=== PATIENT | male | born 1985 | race Caucasian/White ===

== ENCOUNTER 2017-12-15 23:16 | Emergency (ER) | payer OTHER ==
[2017-12-16] MEDS ORDERED: CLINDAMYCIN 900MG/D5W 900 MG/50 ML BAG IV ONE (00:19)
[2017-12-16] MEDS ORDERED: KETOROLAC 30 MG/ML INJ ONE (00:19)
[2017-12-16] MEDS ORDERED: SMZ./TMP. 800/160 MG TABLET ONE (00:19)
[2017-12-16 00:36] LABS: Absolute Lymphocytes (CBC) 2.1 K/uL (0.7-4.9); Absolute Monocytes 0.8 K/uL (0.1-1.3); Absolute Neutrophil 9.3 K/uL (1.8-8.0); Basophils % 0.6 % (0-1.3); Eosinophils % 1.2 % (0-4.4); Hematocrit 42.2 % (39.6-49.0); MCH 30.9 pg (27.0-35.0); MCV 93.5 fL (80-100); MPV 9.4 fL (7.6-11.3); Monocytes % 6.1 % (3.3-12.3); RBC Red Blood Cell Count 4.51 M/uL (4.33-5.43)
[2017-12-16 00:48] LABS: BUN Blood Urea Nitrogen 18 mg/dL (7-18); Bicarbonate 26 mmol/L (21-32); Glucose Level 90 mg/dL (74-106); Potassium 4.1 mmol/L (3.5-5.1); Sodium Level 142 mmol/L (136-145)
--- NOTE | 2017-12-16 01:02 | EDPHYS ---
Physician Documentation [facility] Name: Mamadou Mccormack Age: 32 yrs Sex: Male : 1985 Arrival Date: 12/15/2017 Time: 23:26 Bed 24 Private MD: ED Physician Jaspreet Gale HPI: 12/16 00:17 This 32 yrs old Male presents to ER via Ambulatory with complaints of cp infection of elbow. 00:17 The patient or guardian complains of swelling, tenderness. cp 00:17 The complaints affect the left elbow. Onset: The symptoms/episode began/occurred 1 cp week(s) ago. Treatment prior to arrival includes: no previous treatment. Associated signs and symptoms: Pertinent positives: swelling, warmth, Pertinent negatives: decreased range of motion, fever. Historical: - Allergies: 12/15 23:38 PENICILLINS; sr5 - Home Meds: 23:38 not taking any home meds x 3 months [Active]; sr5 - PMHx: 23:38 Hypertension; Bipolar disorder; Anxiety; PTSD; GERD; sr5 - Immunization history:: Last tetanus immunization: up to date. - Social history:: Smoking status: Patient uses tobacco products, denies chronic smoking, but will smoke occasionally. - Ebola Screening: : Patient negative for fever greater than or equal to 101.5 degrees Fahrenheit, and additional compatible Ebola Virus Disease symptoms. ROS: 12/16 00:25 Constitutional: Negative for body aches, chills, fever, poor PO intake. cp 00:25 Eyes: Negative for injury, pain, redness, and discharge. cp 00:25 ENT: Negative for drainage from ear(s), ear pain, sore throat, difficulty swallowing, difficulty handling secretions. 00:25 Cardiovascular: Negative for chest pain, palpitations. 00:25 Respiratory: Negative for cough, shortness of breath, wheezing. 00:25 Abdomen/GI: Negative for abdominal pain, nausea, vomiting, and diarrhea. 00:25 MS/extremity: Positive for erythema, pain, swelling, tenderness, warmth, of the left elbow, Negative for acute changes, decreased range of motion. 00:25 Neuro: Negative for altered mental status, headache. 00:25 All other systems are negative. Exam: 00:30 Constitutional: The patient appears in no acute distress, alert, awake, non-toxic, well cp developed, well nourished. 00:30 Head/Face: Normocephalic, atraumatic. cp 00:30 Eyes: Periorbital structures: appear normal, Conjunctiva: normal, no exudate, no injection, Sclera: no appreciated abnormality, Lids and lashes: appear normal, bilaterally. 00:30 ENT: External ear(s): are unremarkable, Nose: is normal, Mouth: Lips: moist, Oral mucosa: moist, Posterior pharynx: is normal, airway is patent. 00:30 Neck: ROM/movement: is normal, is supple, without pain, no range of motions limitations, no nuchal rigidity. 00:30 Chest/axilla: Inspection: normal, Palpation: is normal, no crepitus, no tenderness. 00:30 Cardiovascular: Rate: normal, Rhythm: regular. 00:30 Respiratory: the patient does not display signs of respiratory distress, Respirations: normal, no use of accessory muscles, no retractions, labored breathing, is not present, Breath sounds: are clear throughout, no decreased breath sounds, no stridor, no wheezing. 00:30 Abdomen/GI: Exam negative for discomfort, distension, guarding, Inspection: abdomen appears normal. 00:30 Musculoskeletal/extremity: ROM: full active range of motion, in the left elbow, Perfusion: the extremity is normally perfused throughout, Sensation intact. 00:30 Skin: cellulitis, that is moderate, well demarcated, on the left elbow. Vital Signs: 12/15 23:31 BP 152 / 107; Pulse 95; Resp 14; Temp 98.6; Pulse Ox 99% on R/A; Weight 88.45 kg (R); sr5 Height 6 ft. 0 in. (182.88 cm); Pain 10/10; 12/16 01:08 BP 145 / 84; Pulse 96; Pulse Ox 97% on R/A; rv 12/15 23:31 Body Mass Index 26.45 (88.45 kg, 182.88 cm) sr5 MDM: 12/15 23:56 Patient medically screened. cp 12/16 00:30 Differential diagnosis: abscess, cellulitis, septic joint. cp 01:00 Data reviewed: vital signs, nurses notes, lab test result(s), radiologic studies, plain cp films. 01:00 Test interpretation: by ED physician or midlevel provider: plain radiologic studies. cp Counseling: I had a detailed discussion with the patient and/or guardian regarding: the historical points, exam findings, and any diagnostic results supporting the discharge/admit diagnosis, lab results, radiology results, the need for outpatient follow up, a family practitioner, to return to the emergency department if symptoms worsen or persist or if there are any questions or concerns that arise at home. Response to treatment: the patient's symptoms have mildly improved after treatment, and as a result, I will discharge patient. 12/16 00:08 Order name: Wound Culture cp 12/16 00:08 Order name: CBC with Diff; Complete Time: 00:50 cp 12/16 00:50 Interpretation: Normal except: WBC 12.4; FRENCH% 75.1; NEUT A 9.3. cp 12/16 00:08 Order name: BMP; Complete Time: 00:50 cp 12/16 00:08 Order name: Blood Culture Adult (2) cp 12/16 00:18 Order name: XRAY Elbow LEFT 2 view cp 12/16 00:08 Order name: IV; Complete Time: 00:31 cp Administered Medications: 00:10 Drug: Bactrim (160 mg-800 mg (DS) 1 tablet Route: PO; rv 01:07 Follow up: Response: No adverse reaction rv 00:15 Drug: TORadol 30 mg Route: IVP; Site: right antecubital; rv 01:05 Follow up: Response: No adverse reaction rv 00:20 Drug: Clindamycin 900 mg Route: IVPB; Infused Over: 30 mins; Site: right antecubital; rv 01:07 Follow up: Response: No adverse reaction; IV Status: Completed infusion rv Disposition: 02:00 Co-signature as Attending Physician, Jaspreet Gale MD. rn Disposition: 12/16/17 01:01 Discharged to Home. Impression: Cellulitis of left upper limb - Left Elbow. - Condition is Stable. - Discharge Instructions: Cellulitis, Adult. - Prescriptions for Clindamycin HCl 300 mg Oral Capsule - take 1 capsule by ORAL route every 6 hours for 10 days; 40 capsule. Tramadol 50 mg Oral Tablet - take 1 tablet by ORAL route every 8 hours as needed; 12 tablet. Bactrim DS 800- 160 mg Oral Tablet - take 1 tablet by ORAL route every 12 hours for 10 days; 20 tablet. - Medication Reconciliation Form, Thank You Letter, Antibiotic Education, Prescription Opioid Use form. - Follow up: Private Physician; When: 48 Hours; Reason: Wound Recheck. - Problem is new. - Symptoms have improved. Signatures: Dispatcher [employer] EDJaspreet Escalona MD MD rn Buster Alexander PA PA cp Resecker, Sam RN RN sr5 Farrukh Wells RN RN rv Corrections: (The following items were deleted from the chart) 01:08 01:01 12/16/2017 01:01 Discharged to Home. Impression: Cellulitis of left upper limb - rv Left Elbow. Condition is Stable. Forms are Medication Reconciliation Form, Thank You Letter, Antibiotic Education, Prescription Opioid Use. Follow up: Private Physician; When: 48 Hours; Reason: Wound Recheck. Problem is new. Symptoms have improved. cp
--- NOTE | 2017-12-16 01:02 | ER ---
Nurse's Notes [facility] Name: Mamadou Mccormack Age: 32 yrs Sex: Male : 1985 Arrival Date: 12/15/2017 Time: 23:26 Bed 24 Private MD: Diagnosis: Cellulitis of left upper limb-Left Elbow Presentation: 12/15 23:31 Presenting complaint: Patient states: LEFT elbow pain x 1 week, "was swollen with a sr5 white head, so I popped it, but nothing came out". Wound open at this time. Transition of care: patient was not received from another setting of care. Onset of symptoms was December 08, 2017. Risk Assessment: Do you want to hurt yourself or someone else? Patient reports no desire to harm self or others. Initial Sepsis Screen: Does the patient meet any 2 criteria? HR > 90 bpm. Yes Does the patient have a suspected source of infection? No. Patient's initial sepsis screen is negative. Care prior to arrival: None. 23:31 Method Of Arrival: Ambulatory sr5 23:31 Acuity: ZENY 3 sr5 Triage Assessment: 23:31 General: Appears uncomfortable, Behavior is calm, cooperative. Pain: Complains of pain sr5 in left elbow Pain currently is 10 out of 10 on a pain scale. Neuro: No deficits noted. Cardiovascular: No deficits noted. Respiratory: No deficits noted. Derm: Reports swelling, pain to LEFT elbow. Historical: - Allergies: 23:38 PENICILLINS; sr5 - Home Meds: 23:38 not taking any home meds x 3 months [Active]; sr5 - PMHx: 23:38 Hypertension; Bipolar disorder; Anxiety; PTSD; GERD; sr5 - Immunization history:: Last tetanus immunization: up to date. - Social history:: Smoking status: Patient uses tobacco products, denies chronic smoking, but will smoke occasionally. - Ebola Screening: : Patient negative for fever greater than or equal to 101.5 degrees Fahrenheit, and additional compatible Ebola Virus Disease symptoms. Screenin/26 00:00 Abuse screen: Denies threats or abuse. Denies injuries from another. Nutritional rv screening: No deficits noted. 00:00 Tuberculosis screening: No symptoms or risk factors identified. Fall Risk None rv identified. Assessment: 00:00 General: Appears in no apparent distress. comfortable, Behavior is calm, cooperative. rv 00:00 Pain: Complains of pain in left elbow. Neuro: Level of Consciousness is awake, alert, rv obeys commands, Oriented to person, place, time, situation. Cardiovascular: Capillary refill < 3 seconds. Respiratory: Airway is patent. GI: No signs and/or symptoms were reported involving the gastrointestinal system. : No signs and/or symptoms were reported regarding the genitourinary system. EENT: No signs and/or symptoms were reported regarding the EENT system. Derm: Skin is intact. Vital Signs: 12/15 23:31 BP 152 / 107; Pulse 95; Resp 14; Temp 98.6; Pulse Ox 99% on R/A; Weight 88.45 kg (R); sr5 Height 6 ft. 0 in. (182.88 cm); Pain 10/10; 12/16 01:08 BP 145 / 84; Pulse 96; Pulse Ox 97% on R/A; rv 12/15 23:31 Body Mass Index 26.45 (88.45 kg, 182.88 cm) sr5 ED Course: 12/15 23:26 Patient arrived in ED. es 23:31 Arm band placed on. sr5 23:33 Triage completed. sr5 23:56 Buster Alexander PA is PHCP. cp 23:56 Jaspreet Gale MD is Attending Physician. cp 12/16 00:15 Inserted saline lock: 20 gauge in right antecubital area, using aseptic technique. rv 00:34 Patient has correct armband on for positive identification. Bed in low position. Call rv light in reach. Side rails up X 1. Adult w/ patient. Pulse ox on. NIBP on. 00:59 X-ray completed. Portable x-ray completed in exam room. Patient tolerated procedure mh1 well. 00:59 XRAY Elbow LEFT 2 view In Process Unspecified. EDMS 01:07 No provider procedures requiring assistance completed. IV discontinued, bleeding rv controlled, No redness/swelling at site. Pressure dressing applied. Administered Medications: 00:10 Drug: Bactrim (160 mg-800 mg (DS) 1 tablet Route: PO; rv 01:07 Follow up: Response: No adverse reaction rv 00:15 Drug: TORadol 30 mg Route: IVP; Site: right antecubital; rv 01:05 Follow up: Response: No adverse reaction rv 00:20 Drug: Clindamycin 900 mg Route: IVPB; Infused Over: 30 mins; Site: right antecubital; rv 01:07 Follow up: Response: No adverse reaction; IV Status: Completed infusion rv Outcome: 01:01 Discharge ordered by . barbara 01:07 Discharged to home ambulatory. rv 01:07 Condition: good 01:07 Discharge instructions given to patient, Instructed on discharge instructions, follow up and referral plans. medication usage, Prescriptions given X 3. 01:08 Patient left the ED. rv Addendum: 12/20/2017 07:38 Addendum: Culture Results: Positive wound culture. No further action required. Bacteria s s sensitive to prescribed antibiotic. Signatures: Dispatcher [employer] EDNayeli Vázquez Martha 1 Sweetie Ovalle RN RN ss Buster Alexander PA PA cp Resecker, Sam RN RN sr5 Farrukh Wells RN RN rv Corrections: (The following items were deleted from the chart) 07:41 07:38 Addendum: Culture Results: Positive wound culture. ss ss
--- NOTE | 2017-12-16 11:17 | RAD REPORT ---
EXAM DESCRIPTION: RAD - Elbow Left 2 View - 12/16/2017 12:59 am CLINICAL HISTORY: cellulitis COMPARISON: No comparisons FINDINGS: Moderate soft tissue swelling is seen along the olecranon process of the elbow. No underly ing osteomyelitis. No subcutaneous gas seen. No acute fracture or dislocation evident.
== END 2017-12-16 01:08 | disposition home or self-care (01) ==
LOC: ER 23:16
DX: L03.114 Cellulitis of left upper limb (principal); I10 Essential (primary) hypertension; Z88.0 Allergy status to penicillin; Z72.0 Tobacco use
CPT/HCPCS: 36415; 80048; 85025; 87040; 87070; 87077; 87186; 87205; 96365; 96375; 99284

== ENCOUNTER 2018-03-31 16:18 | Emergency (ER) | payer OTHER ==
--- OUTSIDE RECORDS SUMMARY | 2018-03-31 16:21 | XMS REPORT ---
:1985 [facility] Address [address] [place] [address] Care Team Providers Name Role Phone Unavailable Unavailable Unavailable Payers Payer Name Policy Type Policy Number Effective Date Expiration Date Problems This patient has no known problems. Allergies, Adverse Reactions, Alerts Allergy Name Allergy Status Severity Reaction(s) Onset Inactive Treating Comments Type Date Date Clinician Penicillins DA Active ID [id number] 00:00:0 0 Medications This patient has no known medications.
--- OUTSIDE RECORDS SUMMARY | 2018-03-31 16:21 | XMS REPORT | Clinical Summary ---
:1985 Author Organization [facility] Address [address] [place] [address] Care Team Providers Name Role Phone Asked, No Pcp Primary Care Provider Unavailable Allergies Active Allergy Reactions Severity Noted Date Comments Penicillins GI Intolerance Medium 02/22/2018 Medications Medication Sig Dispensed Refills Start Date End Date Status keTOROlac (TORadol) Take 1 tablet 15 tablet 0 02/22/2018 02/27/2018 10 mg tablet (10 mg total) by mouth every 6 (six) hours as needed for moderate pain for up to 5 days. acetaminophen-codeine Take 1-2 20 tablet 0 02/22/2018 02/27/2018 (TYLENOL WITH CODEINE tablets by #3) 300-30 mg per mouth every 6 tablet (six) hours as needed for moderate pain for up to 5 days. ondansetron ODT Take 1 tablet 10 tablet 0 02/22/2018 03/24/2018 (ZOFRAN ODT) 4 MG (4 mg total) by disintegrating tablet mouth every 8 (eight) hours as needed for nausea for up to 30 days. doxycycline Take 1 capsule 20 capsule 0 03/09/2018 03/19/2018 (VIBRAMYCIN) 100 MG (100 mg total) capsule by mouth 2 (two) times a day for 10 days. acetaminophen-codeine Take 1-2 10 tablet 0 03/09/2018 03/12/2018 (TYLENOL WITH CODEINE tablets by #3) 300-30 mg per mouth every 6 tablet (six) hours as needed for moderate pain for up to 3 days. Active Problems Not on file Encounters Date Type Specialty Care Team Description 03/09/2018 Emergency Emergency Medicine Antione Cruz, Right flank pain (Primary MD Dx) 02/22/2018 Emergency Emergency Medicine Randy Lopez, Flank pain ( Primary Dx) MD after 03/30/2017 Social History Tobacco Use Types Packs/Day Years Used Date Current Every Day Smoker Smokeless Tobacco: Current User Alcohol Use Drinks/Week oz/Week Comments Yes Sex Assigned at Date Recorded Not on file Job Start Date Occupation Industry Not on file Not on file Not on file Travel History Travel Start Travel End No recent travel history available. Last Filed Vital Signs Vital Sign Reading Time Taken Blood Pressure 135/85 03/09/2018 9:51 AM MEASUREMENT AND SENSING TECHNICIAN Pulse 74 03/09/2018 9:51 AM MEASUREMENT AND SENSING TECHNICIAN Temperature 37.1 C (98.7 F) 03/09/2018 8:01 AM MEASUREMENT AND SENSING TECHNICIAN Respiratory Rate 15 03/09/2018 9:51 AM MEASUREMENT AND SENSING TECHNICIAN Oxygen Saturation 99% 03/09/2018 9:51 AM MEASUREMENT AND SENSING TECHNICIAN Inhaled Oxygen Concentration - - Weight 89.8 kg (198 lb) 02/22/2018 2:11 PM CDT Height 182.9 cm (6') 03/09/2018 8:04 AM MEASUREMENT AND SENSING TECHNICIAN Body Mass Index 26.85 02/22/2018 2:11 PM CDT Plan of Treatment Health Maintenance Due Date Last Done Comments INFLUENZA VACCINE 11/21/2017 HEPATITIS B VACCINES Aged Out No longer eligible based on patient's age to complete this topic IPV VACCINES Aged Out No longer eligible based on patient's age to complete this topic MENINGOCOCCAL VACCINE Aged Out No longer eligible based on patient's age to complete this topic Procedures Procedure Name Priority Date/Time Associated Comments Diagnosis CT RENAL STONE STAT 03/09/2018 8:43 Results for this PROTOCOL AM MEASUREMENT AND SENSING TECHNICIAN procedure are in the results section. URINALYSIS SCREEN AND STAT 03/09/2018 8:34 Results for this MICROSCOPY, WITH AM MEASUREMENT AND SENSING TECHNICIAN procedure are in REFLEX TO CULTURE the results section. URINE CULTURE STAT 03/09/2018 8:34 Results for this AM MEASUREMENT AND SENSING TECHNICIAN procedure are in the results section. ESTIMATED GFR STAT 03/09/2018 8:32 Results for this AM MEASUREMENT AND SENSING TECHNICIAN procedure are in the results section. COMPREHENSIVE STAT 03/09/2018 8:32 Results for this METABOLIC PANEL AM MEASUREMENT AND SENSING TECHNICIAN procedure are in the results section. HC COMPLETE BLD COUNT STAT 03/09/2018 8:32 Results for this W/AUTO DIFF AM MEASUREMENT AND SENSING TECHNICIAN procedure are in the results section. URINALYSIS SCREEN AND STAT 02/22/2018 3:17 Results for this MICROSCOPY, WITH PM CDT procedure are in REFLEX TO CULTURE the results section. URINE CULTURE STAT 02/22/2018 3:17 Results for this PM CDT procedure are in the results section. CT RENAL STONE STAT 02/22/2018 3:02 Results for this PROTOCOL PM CDT procedure are in the results section. ESTIMATED GFR STAT 02/22/2018 2:39 Results for this PM CDT procedure are in the results section. COMPREHENSIVE STAT 02/22/2018 2:39 Results for this METABOLIC PANEL PM CDT procedure are in the results section. HC COMPLETE BLD COUNT STAT 02/22/2018 2:39 Results for this W/AUTO DIFF PM CDT procedure are in the results section. after 03/30/[address] Renal Stone Protocol (03/09/2018 8:43 AM MEASUREMENT AND SENSING TECHNICIAN)Only the most recent of2 resultswithin the time period is included. Narrative Performed At EXAMINATION:CT RENAL STONE PROTOCOL [facility] CLINICAL HISTORY:Flank painrecurrent stone disease suspected TECHNIQUE: Multiple axial images of the abdomen and pelvis were obtained without intravenous administration of iodinated contrast. Sagittal and coronal computerized reformatted images were also obtained. The lack of intravenous contrast reduces the sensitivity of detecting solid organ disease. CT imaging was performed with iterative reconstruction technique and/or automated exposure control to reduce radiation dose. COMPARISON:February 22, [address] FINDINGS: Lung bases clear. Minimal emphysematous bleb right base. No free peritoneal air or fluid Abdomen: Liver is grossly unremarkable on noncontrast examination. Spleen is normal in size. Gallbladder grossly unremarkable. No gross biliary distention. Adrenal glands normal size. Pancreas unremarkable in gross appearance. Abdominal aorta normal in caliber with scattered atherosclerotic change No abdominal adenopathy evident. Moderate fecal material in the colon. No bowel obstruction the abdomen. Kidneys remain normal in size. There is no hydronephrosis on either side. There are punctate nonobstructing intrarenal calyceal calculi bilaterally similar to previous. Less than 5 mm benign appearing cortical cyst off the inferior pole of the right kidney as on previous. Pelvis: The appendix is normal in caliber in the right mid to lower pelvis. There is moderate fecal material throughout the colon. Mild diverticulosis of the sigmoid. No diverticulitis. No bowel obstruction Bladder grossly unremarkable. Prostate not enlarged. No pelvic mass or sidewall adenopathy. No abdominal wall hernia. Slight degenerative changes lumbar and lower thoracic spine IMPRESSION: Stable bilateral punctate nonobstructing intrarenal calculi No hydronephrosis Normal appendix Otherwise unremarkable noncontrast CT abdomen and pelvis [id number] Procedure Note Hm Interface, Radiology Results Incoming - 03/09/2018 9:15 AM MEASUREMENT AND SENSING TECHNICIAN EXAMINATION: CT RENAL STONE PROTOCOL CLINICAL HISTORY: Flank pain recurrent stone disease suspected TECHNIQUE: Multiple axial images of the abdomen and pelvis were obtained without intravenous administration of iodinated contrast. Sagittal and coronal computerized reformatted images were also obtained. The lack of intravenous contrast reduces the sensitivity of detecting solid organ disease. CT imaging was performed with iterative reconstruction technique and/or automated exposure control to reduce radiation dose. COMPARISON: February 22, [address] FINDINGS: Lung bases clear. Minimal emphysematous bleb right base. No free peritoneal air or fluid Abdomen: Liver is grossly unremarkable on noncontrast examination. Spleen is normal in size. Gallbladder grossly unremarkable. No gross biliary distention. Adrenal glands normal size. Pancreas unremarkable in gross appearance. Abdominal aorta normal in caliber with scattered atherosclerotic change No abdominal adenopathy evident. Moderate fecal material in the colon. No bowel obstruction the abdomen. Kidneys remain normal in size. There is no hydronephrosis on either side. There are punctate nonobstructing intrarenal calyceal calculi bilaterally similar to previous. Less than 5 mm benign appearing cortical cyst off the inferior pole of the right kidney as on previous. Pelvis: The appendix is normal in caliber in the right mid to lower pelvis. There is moderate fecal material throughout the colon. Mild diverticulosis of the sigmoid. No diverticulitis. No bowel obstruction Bladder grossly unremarkable. Prostate not enlarged. No pelvic mass or sidewall adenopathy. No abdominal wall hernia. Slight degenerative changes lumbar and lower thoracic spine IMPRESSION: Stable bilateral punctate nonobstructing intrarenal calculi No hydronephrosis Normal appendix Otherwise unremarkable noncontrast CT abdomen and pelvis [id number] Performing Organization Address City/State/Zipcode Phone Number [facility] [address] [place] [address] Urinalysis screen and microscopy, with reflex to culture (03/09/2018 8:34 AM MEASUREMENT AND SENSING TECHNICIAN)Only the most recent of2 resultswithin the time period is included. Specimen site Clean catch [facility] Color, UA Yellow [facility] Appearance, UA Clear [facility] Specific gravity, UA 1.023 1.001 - 1.035 [facility] pH, UA 5.0 5.0 - 8.5 [facility] Protein, UA Negative Negative [facility] Glucose, UA Negative Negative [facility] Ketones, UA Negative Negative [facility] Bilirubin, UA Negative Negative [facility] Blood, UA Negative Negative [facility] Nitrite, UA Negative Negative [facility] Urobilinogen, UA 2.0 (A) <2.0 [facility] Leukocyte esterase, UA Negative Negative [facility] WBC, UA 0-5 0 - 1 /HPF [facility] RBC, UA None seen 0 - 5 /HPF [facility] Bacteria, UA None seen None seen [facility] Yeast, UA None seen [facility] Yeast with pseudohyphae, UA None seen [facility] Specimen Urine Performing Organization Address [facility] Phone Number [facility] DEPARTMENT OF PATHOLOGY AND [address] [place] [address] Urine culture (03/09/2018 8:34 AM MEASUREMENT AND SENSING TECHNICIAN)Only the most recent of2 resultswithin the time period is included. Urine culture SEE COMMENTComment: Bacteriuria [facility] screen negative. HOSPITAL Specimen Urine Performing Organization Address [facility] Phone Number [facility] PATHOLOGY AND [address] [place] [address] Estimated GFR (03/09/2018 8:32 AM MEASUREMENT AND SENSING TECHNICIAN)Only the most recent of2 resultswithin the time period is included. Estimated GFR >=90 mL/min/1.73 m2 [facility] Comment: [facility] CatergoryUnitsInterpretation G1 >=90 Normal or high G2 60-89Mildly decreased [id number] to moderately decreased [id number] to severely decreased G4 15-29Severely decreased G5 <15Kidney failure The eGFR was calculated using the Chronic Kidney Disease Epidemiology Collaboration (CKD-EPI) equation. Interpretation is based on recommendations of the National Kidney Foundation-Kidney Disease Outcomes Quality Initiative (NKF-KDOQI) published in 2014. Specimen Plasma specimen Performing Organization Address City/[facility] Phone Number [facility] DEPARTMENT OF PATHOLOGY AND [id number] [place] [address] [place], [place] [id number] [place] [address] CBC with platelet and differential (03/09/2018 8:32 AM MEASUREMENT AND SENSING TECHNICIAN)Only the most recent of2 resultswithin the time period is included. WBC 15.24 (H) 4.50 - 11.00 k/uL [facility] RBC 5.01 4.40 - 6.00 m/uL [facility] HGB 15.1 14.0 - 18.0 g/dL [facility] HCT 46.5 41.0 - 51.0 % [facility] MCV 92.8 82.0 - 100.[address] [facility] MCH 30.1 27.0 - 34.[address] [facility] MCHC 32.5 31.0 - 37.0 g/dL [facility] RDW - SD 46.5 37.0 - 55.[address] [facility] MPV 10.8 8.8 - 13.[address] [facility] Platelet count 233 150 - 400 k/uL [facility] Nucleated RBC 0.00 /[address] [facility] Neutrophils 62.8 39.0 - 69.0 % [facility] Lymphocytes 29.3 25.0 - 45.0 % [facility] Monocytes 6.5 0.0 - 10.0 % [facility] Eosinophils 0.7 0.0 - 5.0 % [facility] Basophils 0.5 0.0 - 1.0 % [facility] Specimen Blood Performing Organization Address City/[facility]/Zipcode Phone Number [facility] DEPARTMENT OF PATHOLOGY AND [address] [place] [address] [place] [address] [facility] [address] Comprehensive metabolic panel (03/09/2018 8:32 AM MEASUREMENT AND SENSING TECHNICIAN)Only the most recent of2 resultswithin the time period is included. Sodium 141 135 - 148 mEq/L [facility] Potassium 4.0 3.5 - 5.0 mEq/L [facility] Chloride 101 98 - 112 mEq/L [facility] CO2 26 24 - 31 mEq/L [facility] Anion gap 14@ANIO 7 - 15 mEq/L [facility] BUN 14 6 - 20 mg/dL [facility] Creatinine 0.90 0.70 - 1.20 mg/dL [facility] Glucose 109 (H) 65 - 99 mg/dL [facility] Calcium 10.4 (H) 8.3 - 10.2 mg/dL [facility] Protein 8.4 (H) 6.3 - 8.3 g/dL [facility] Comment: [facility] 4.6-7.0 g/dL 1 week 4.4-7.6 g/dL 7 months-1year5.1-7.3 g/dL 1-2 years5.6-7.5 g/dL >3 years6.0-8.0 g/dL 18-150 6.3-8.3 g/dL Albumin 4.9 3.5 - 5.0 g/dL [facility] A/G ratio 1.4 0.7 - 3.8 [facility] Alkaline phosphatase 65 40 - 129 U/L [facility] AST 17 10 - 50 U/L [facility] ALT 11 5 - 50 U/L [facility] Total bilirubin 0.2 0.0 - 1.2 mg/dL [facility] Specimen Plasma specimen Performing Organization Address City/State/Zipcode Phone Number [facility] DEPARTMENT OF PATHOLOGY AND [address] after 03/30/2017 Advance Directives Patient has advance care planning documents on file. For more information, please contact:Danish Stoner[address] [facility] [place] [address]
[2018-03-31] MEDS ORDERED: KETOROLAC 30 MG/ML INJ ONE (16:44)
[2018-03-31 16:55] LABS: Urine Bacteria <20 /HPF (NONE SEEN)
[2018-03-31 16:56] LABS: Urine Culture Reflex Order NOT NEEDED
--- NOTE | 2018-03-31 17:10 | RAD REPORT ---
EXAM DESCRIPTION: CT - Stone Protocol - 03/31/2018 5:00 pm CLINICAL HISTORY: Back pain, right flank pain, dysuria COMPARISON: None. TECHNIQUE: Axial 5 mm thick images were obtained without oral or IV contrast. The [id number] span s the entirety of the system including uppermost abdomen and lung bases. All CT scans are performed using dose optimization technique as appropriate and may include automated exposure control or mA/KV adjustment according to patient size. FINDINGS: No hydronephrosis is present and no obstructing ureteral calculi. Punctate nonobstructing 1-2 mm sized calyx calculi seen in each kidney. No suspicious renal masses. Isodense masses and pyelo nephritis are not excluded on a stone protocol CT scan. Urinary bladder is mostly contracted limiting assessment. No bladder calculi. Prostate gland and seminal vesicles within normal range. Imaged portions of the liver, spleen and pancreas show no suspicious findings on non-contrast imaging . No gallbladder or biliary tree abnormality identified. No significant adrenal finding. No suspicious bowel findings. No appendicitis findings. A few small mesenteric lymph nodes are presen t. No hernia, mass or bulky lymphadenopathy noted. No free air, free fluid or inflammatory stranding. No significant bony abnormality. IMPRESSION: No hydronephrosis, obstructing calculus or other acute finding. Patient has punctate 1-2 mm bilateral calyx calculi. Isodense masses and pyelonephritis are not excluded on stone protocol technique.
--- NOTE | 2018-03-31 17:33 | ER ---
Nurse's Notes [facility] Name: Mamadou Mccormack Age: 32 yrs Sex: Male : 1985 Arrival Date: 03/31/2018 Time: 16:21 Bed 30 Private MD: Diagnosis: Constipation;Nonspecific mesenteric lymphadenitis Presentation: 03/31 16:25 Presenting complaint: Patient states: Right mid back pain for 1 week and burning with aj urination that started today. Transition of care: patient was not received from another setting of care. Onset of symptoms was March 24, 2018. Risk Assessment: Do you want to hurt yourself or someone else? Patient reports no desire to harm self or others. Initial Sepsis Screen: Does the patient meet any 2 criteria? No. Patient's initial sepsis screen is negative. Does the patient have a suspected source of infection? No. Patient's initial sepsis screen is negative. Care prior to arrival: None. 16:25 Method Of Arrival: Ambulatory aj 16:25 Acuity: ZENY 3 aj Triage Assessment: 16:27 General: Appears in no apparent distress. comfortable, Behavior is calm, cooperative, aj appropriate for age. Pain: Complains of pain in right mid back. Neuro: Level of Consciousness is awake, alert, obeys commands, Oriented to person, place, time, situation, Appropriate for age. Respiratory: Airway is patent Trachea midline Respiratory effort is even, unlabored, Respiratory pattern is regular, symmetrical. : Reports burning with urination. Derm: Skin is intact, is healthy with good turgor, Skin is pink, warm \T\ dry. normal. Historical: - Allergies: 16:27 PENICILLINS; aj - Home Meds: 16:27 None [Active]; aj - PMHx: 16:27 Anxiety; Bipolar disorder; GERD; Hypertension; PTSD; aj - PSHx: 16:27 Knee surgery; Hernia repair; Left testicle removal; aj - Immunization history:: Adult Immunizations up to date. - Social history:: Smoking status: Patient uses tobacco products, smokes one pack cigarettes per day. - Ebola Screening: : Patient negative for fever greater than or equal to 101.5 degrees Fahrenheit, and additional compatible Ebola Virus Disease symptoms Patient denies exposure to infectious person Patient denies travel to an Ebola-affected area in the 21 days before illness onset No symptoms or risks identified at this time. Screenin:32 Abuse screen: Denies threats or abuse. Denies injuries from another. Nutritional rv screening: No deficits noted. Tuberculosis screening: No symptoms or risk factors identified. Fall Risk None identified. Assessment: 16:45 General: Appears in no apparent distress. uncomfortable, Behavior is calm. Pain: rv Complains of pain in FLANK. Neuro: Level of Consciousness is awake, alert, obeys commands, Oriented to person, place, time, situation. Cardiovascular: Capillary refill < 3 seconds. Respiratory: Airway is patent. GI: No signs and/or symptoms were reported involving the gastrointestinal system. : No signs and/or symptoms were reported regarding the genitourinary system. EENT: No signs and/or symptoms were reported regarding the EENT system. Derm: Skin is intact. Musculoskeletal: No signs and/or symptoms reported regarding the musculoskeletal system. Vital Signs: 16:27 BP 156 / 85; Pulse 85; Resp 20; Temp 99.0; Pulse Ox 99% on R/A; Weight 86.64 kg; Height aj 6 ft. 0 in. (182.88 cm); 17:00 BP 130 / 111; Pulse 99; Resp 16; Pulse Ox 100% on R/A; rv 17:30 BP 130 / 86; Pulse 86; Resp 16; Pulse Ox 100% on R/A; rv 16:27 Body Mass Index 25.90 (86.64 kg, 182.88 cm) ED Course: 16:21 Patient arrived in ED. as 16:26 Triage completed. aj 16:27 Arm band placed on left wrist. Patient placed in an exam room. aj 16:29 Lianet Taylor FNP-C is PHCP. snw 16:29 Buster Ortiz MD is Attending Physician. snw 16:45 Urine Culture Sent. rv 16:45 Urine Microscopic Only Sent. rv 16:56 CT completed. Patient moved to CT via wheelchair. Patient moved back from CT. bq 16:59 CT Stone Protocol In Process Unspecified. EDMS 17:32 Patient has correct armband on for positive identification. Bed in low position. Call rv light in reach. Side rails up X 1. Pulse ox on. NIBP on. 17:38 No provider procedures requiring assistance completed. Patient did not have IV access rv during this emergency room visit. Administered Medications: 16:35 Drug: TORadol 60 mg Route: IM; Site: right deltoid; rv 17:39 Follow up: Response: Pain is decreased rv Outcome: 17:32 Discharge ordered by MD. diamond 17:38 Discharged to home ambulatory. rv 17:38 Condition: good 17:38 Discharge instructions given to patient, Instructed on discharge instructions, follow up and referral plans. medication usage, Demonstrated understanding of instructions, follow-up care, medications, Prescriptions given X 2. 17:39 Patient left the ED. rv Signatures: Dispatcher [employer] Mabel Pierre, RN RN Lianet Rutledge, SPEAKER WIRER-C SPEAKER WIRER-Csnw Fara Leone Amelia as Vicente, Ronaldo, RN RN rv
--- NOTE | 2018-03-31 17:33 | EDPHYS ---
Physician Documentation [facility] Name: Mamadou Mccormack Age: 32 yrs Sex: Male : 1985 Arrival Date: 03/31/2018 Time: 16:21 Bed 30 Private MD: Buster Davies HPI: 03/31 16:41 This 32 yrs old Male presents to ER via Ambulatory with complaints of Flank snw Pain. 16:41 The patient complains of pain in the right mid back. The pain does not radiate. Onset: snw The symptoms/episode began/occurred suddenly, 2 day(s) ago, and became persistent. Associated signs and symptoms: Pertinent positives: dysuria. Severity of pain: At its worst the pain was moderate. dx with Kidney stones in the past. The patient has not recently seen a physician, PCP in [place]. Historical: - Allergies: 16:27 PENICILLINS; aj - Home Meds: 16:27 None [Active]; aj - PMHx: 16:27 Anxiety; Bipolar disorder; GERD; Hypertension; PTSD; aj - PSHx: 16:27 Knee surgery; Hernia repair; Left testicle removal; aj - Immunization history:: Adult Immunizations up to date. - Social history:: Smoking status: Patient uses tobacco products, smokes one pack cigarettes per day. - Ebola Screening: : Patient negative for fever greater than or equal to 101.5 degrees Fahrenheit, and additional compatible Ebola Virus Disease symptoms Patient denies exposure to infectious person Patient denies travel to an Ebola-affected area in the 21 days before illness onset No symptoms or risks identified at this time. ROS: 16:41 Constitutional: Negative for fever, chills, and weight loss, Eyes: Negative for injury, snw pain, redness, and discharge, ENT: Negative for injury, pain, and discharge, Neck: Negative for injury, pain, and swelling, Cardiovascular: Negative for chest pain, palpitations, and edema, Respiratory: Negative for shortness of breath, cough, wheezing, and pleuritic chest pain, Abdomen/GI: Negative for abdominal pain, nausea, vomiting, diarrhea, and constipation, MS/Extremity: Negative for injury and deformity, Skin: Negative for injury, rash, and discoloration, Neuro: Negative for headache, weakness, numbness, tingling, and seizure. 16:41 Back: Positive for flank pain, on the right. 16:41 : Positive for burning with urination. Exam: 16:39 Constitutional: This is a well developed, well nourished patient who is awake, alert, snw and in no acute distress. Head/Face: Normocephalic, atraumatic. Eyes: Pupils equal round and reactive to light, extra-ocular motions intact. Lids and lashes normal. Conjunctiva and sclera are non-icteric and not injected. Cornea within normal limits. Periorbital areas with no swelling, redness, or edema. ENT: Nares patent. No nasal discharge, no septal abnormalities noted. Tympanic membranes are normal and external auditory canals are clear. Oropharynx with no redness, swelling, or masses, exudates, or evidence of obstruction, uvula midline. Mucous membranes moist. Neck: Trachea midline, no thyromegaly or masses palpated, and no cervical lymphadenopathy. Supple, full range of motion without nuchal rigidity, or vertebral point tenderness. No Meningismus. Chest/axilla: Normal chest wall appearance and motion. Nontender with no deformity. No lesions are appreciated. Cardiovascular: Regular rate and rhythm with a normal S1 and S2. No gallops, murmurs, or rubs. Normal PMI, no JVD. No pulse deficits. Respiratory: Lungs have equal breath sounds bilaterally, clear to auscultation and percussion. No rales, rhonchi or wheezes noted. No increased work of breathing, no retractions or nasal flaring. Back: No spinal tenderness. Right costovertebral tenderness. no pain to left flank. Full range of motion. Skin: Warm, dry with normal turgor. Normal color with no rashes, no lesions, and no evidence of cellulitis. MS/ Extremity: Pulses equal, no cyanosis. Neurovascular intact. Full, normal range of motion. Neuro: Awake and alert, GCS 15, oriented to person, place, time, and situation. Cranial nerves II-XII grossly intact. Motor strength 5/5 in all extremities. Sensory grossly intact. Cerebellar exam normal. Normal gait. 16:39 Abdomen/GI: Soft, non-tender, with normal bowel sounds. No distension or tympany. No guarding or rebound. No evidence of tenderness throughout. Vital Signs: 16:27 BP 156 / 85; Pulse 85; Resp 20; Temp 99.0; Pulse Ox 99% on R/A; Weight 86.64 kg; Height aj 6 ft. 0 in. (182.88 cm); 17:00 BP 130 / 111; Pulse 99; Resp 16; Pulse Ox 100% on R/A; rv 17:30 BP 130 / 86; Pulse 86; Resp 16; Pulse Ox 100% on R/A; rv 16:27 Body Mass Index 25.90 (86.64 kg, 182.88 cm) aj MDM: 16:31 Patient medically screened. snw 16:34 Data reviewed: vital signs, nurses notes. Data interpreted: Pulse oximetry: on room air snw is 99 %. Interpretation: normal. Counseling: I had a detailed discussion with the patient and/or guardian regarding: the historical points, exam findings, and any diagnostic results supporting the discharge/admit diagnosis, the presence of at least one elevated blood pressure reading (>120/80) during this emergency department visit, lab results. ED course: PCP in [place]. 03/31 16:30 Order name: Urine Culture snw 03/31 16:30 Order name: Urine Microscopic Only; Complete Time: 16:58 snw 03/31 16:30 Order name: Urine Dipstick-Ancillary (obtain specimen); Complete Time: 16:45 snw 03/31 16:34 Order name: CT Stone Protocol; Complete Time: 17:11 snw Administered Medications: 16:35 Drug: TORadol 60 mg Route: IM; Site: right deltoid; rv 17:39 Follow up: Response: Pain is decreased rv Disposition: 04/01 06:40 Co-signature as Attending Physician, Buster Ortiz MD I agree with the assessment and robson plan of care. Disposition: 03/31/18 17:32 Discharged to Home. Impression: Constipation, Nonspecific mesenteric lymphadenitis. - Condition is Stable. - Discharge Instructions: Constipation, Adult, High-Fiber Diet, Mesenteric Adenitis, Pediatric, Rehydration, Adult. - Prescriptions for Diclofenac Sodium 75 mg Oral Tablet Sustained Release - take 1 tablet by ORAL route 2 times per day; 30 tablet. Miralax 17 gram/dose Oral - take 1 packet by ORAL route once daily dilute powder in 8 ounces of water or juice; 1 box. - Medication Reconciliation Form, Thank You Letter, Antibiotic Education, Prescription Opioid Use form. - Follow up: Private Physician; When: 2 - 3 days; Reason: Recheck today's complaints, Continuance of care, Re-evaluation by your physician. Follow up: Emergency Department; When: As needed; Reason: Worsening of condition. Signatures: Dispatcher [employer] Mabel Pierre, RN RN Buster Joya MD MD cha Therrien, Shelly, PANTS PRESSER-C PANTS PRESSER-Csnw Farrukh Wells, RN RN rv Corrections: (The following items were deleted from the chart) 03/31 17:39 17:32 03/31/2018 17:32 Discharged to Home. Impression: Constipation; Nonspecific rv mesenteric lymphadenitis. Condition is Stable. Forms are Medication Reconciliation Form, Thank You Letter, Antibiotic Education, Prescription Opioid Use. Follow up: Private Physician; When: 2 - 3 days; Reason: Recheck today's complaints, Continuance of care, Re-evaluation by your physician. Follow up: Emergency Department; When: As needed; Reason: Worsening of condition. snw
== END 2018-03-31 17:39 | disposition home or self-care (01) ==
LOC: ER 16:18
DX: K59.00 Constipation, unspecified (principal); I88.0 Nonspecific mesenteric lymphadenitis; F17.210 Nicotine dependence, cigarettes, uncomplicated; I10 Essential (primary) hypertension; Z88.0 Allergy status to penicillin
CPT/HCPCS: 74176; 76377; 81015; 87086; 87088; 96372; 99284